=== PATIENT | female | born 1955 | race Caucasian/White ===

== ENCOUNTER 2025-02-16 23:38 | Inpatient (IN) ==
--- NOTE | 2025-02-17 00:05 | Emergency Department Note ---
History of Present Illness General Chief complaint: Flank Pain Stated complaint: RT SIDE PAIN, COUGHING BLOOD Time Seen by Provider: 02/16/25 23:53 History of Present Illness This 70-year-old female presents to ER complaining of fever, chills, congestion and right side abdominal pain for the past 2 days steadily getting worse. Patient does not go to the doctor. She smokes. She has had 2 C-sections. She is an [employer]. Patient denies chest pain, vomiting, diarrhea, urinary symptoms. Home Medications Medication Instructions Recorded Confirmed Type No Known Home Medications 02/17/25 02/17/25 History Allergies Allergy/AdvReac Type Severity Reaction Status Date / Time No Known Allergies Allergy Unverified 02/17/25 01:51 Past Med/Surg History Problem List (Updated 02/17/25 @ 03:26 by Lauren Woo PA-C) Thyroid nodule (Acute) Mass, ovarian (Acute) Sepsis (Acute) Cholecystitis (Acute) Social History Smoking Status: Current every day smoker Tobacco Type: Cigarettes Feels Safe at Home: Yes Review of Systems A total of 10 systems reviewed and were otherwise negative Physical Exam Vital Signs Vital Signs - 24 hr 02/16/25 23:44 02/17/25 00:02 02/17/25 00:16 Temperature 37.8 C H Temperature Source Temporal Artery Scan Pulse Rate 121 H Pulse Rate [Apical] 108 H 98 H Pulse Rhythm Regular Pulse Rhythm [Apical] Regular Respiratory Rate 19 20 18 Respiratory Effort / Characteristics Non-Labored Non-Labored Spontaneous Non-Labored Spontaneous Respiratory Depth Normal Normal Normal Respiratory Pattern Regular Regular Blood Pressure 149/83 H Blood Pressure [Right Arm] 176/80 H 131/93 Blood Pressure Mean 105 Blood Pressure Mean [Right Arm] 112 105 Blood Pressure Position [Right Arm] Sitting Pulse Oximetry 95 95 95 Oxygen Delivery Method Room Air Room Air Room Air Sepsis Recent Fever Within 48 Hours No Sepsis New/Unexplained Change in Mental Status No Sepsis Action Taken by Nursing No Action Required 02/17/25 00:25 02/17/25 02:00 Temperature Temperature Source Pulse Rate 96 H Pulse Rate [Apical] 85 Pulse Rhythm Pulse Rhythm [Apical] Regular Respiratory Rate 16 Respiratory Effort / Characteristics Non-Labored Spontaneous Respiratory Depth Normal Respiratory Pattern Regular Blood Pressure Blood Pressure [Right Arm] 129/58 L Blood Pressure Mean Blood Pressure Mean [Right Arm] 81 Blood Pressure Position [Right Arm] Pulse Oximetry 93 Oxygen Delivery Method Room Air Sepsis Recent Fever Within 48 Hours Sepsis New/Unexplained Change in Mental Status Sepsis Action Taken by Nursing VITALS: Vitals are noted on the nurse's note and reviewed by myself. Vital signs low-grade fever and mildly tachycardic. GENERAL: Pleasant patient with family present, in no acute distress, nondiaphoretic, well-developed well-nourished. SKIN: The skin was without rashes, erythema, edema, or bruising. There is no tenting of the skin. Capillary reflex less than 2 seconds. HEAD: Normocephalic atraumatic. EARS: External auditory canals clear EYES: Pupils equal round and reactive to light and accommodation. Conjunctivae without injection, sclerae without icterus. Extraocular movements intact. NOSE: Patent, no discharge. MOUTH: Mucous membranes moist. Pharynx without erythema or exudate. Uvula midline. Airway patent. Tongue does not deviate. NECK: Supple without nuchal rigidity. No lymphadenopathy. No thyromegaly. Cervical spine is nontender. No JVD. HEART: Mildly tachycardic rate and rhythm LUNGS: Clear to auscultation bilaterally without wheezes, rales or rhonchi. No retractions or accessory muscle use. ABDOMEN: Positive bowel sounds x 4. Normal tympanic percussion. Soft, tender to palpation right upper and lower quadrants, without masses or organomegaly. Landers sign negative. No guarding or rebound tenderness. No CVA tenderness MUSCULOSKELETAL: No muscle atrophy, erythema, or edema noted. NEURO: Patient was alert and oriented to person place and time. Normal sensation to light and sharp touch. No focal neurological deficits. Course Administered Medications Potassium Chloride (K Jimmy / Wtr) 10 meq in 100 mls @ 100 mls/hr IV Q1H [facility] Stop: 02/17/25 06:44 Last Admin: 02/17/25 03:32 Dose: 100 mls/hr Documented By: CHARLIE Magnesium Sulfate/Dextrose (Magnesium Sulfate / D5w) 1 gm in 100 mls @ 100 mls/hr IV Q1H [facility] Stop: 02/17/25 04:41 Last Admin: 02/17/25 03:32 Dose: 100 mls/hr Documented By: CHARLIE Discontinued Medications Acetaminophen (Acetaminophen 325 Mg Tab) 650 mg PO NOW STA Stop: 02/17/25 00:02 Last Admin: 02/17/25 00:17 Dose: 650 mg Documented By: REY Sodium Chloride (Nss) 1,000 mls @ 999 mls/hr IV .Q1H1M [facility] Stop: 02/17/25 01:15 Last Infusion: 02/17/25 02:00 Dose: Infused Documented By: Admin: 02/17/25 00:17 Dose: 999 mls/hr Documented By: REY Piperacillin Sod/Tazobactam Sod (Zosyn) 4.5 gm in 100 mls @ 200 mls/hr IV NOW ONE; Protocol Stop: 02/17/25 00:30 Last Infusion: 02/17/25 01:00 Dose: Infused Documented By: Admin: 02/17/25 00:25 Dose: 200 mls/hr Documented By: CHARLIE Sodium Chloride (Nss) 250 mls @ 999 mls/hr IV .Q16M ONE Stop: 02/17/25 01:17 Last Infusion: 02/17/25 02:20 Dose: Infused Documented By: Admin: 02/17/25 01:35 Dose: 999 mls/hr Documented By: CHARLIE Ioversol (Optiray 320 125ml) 118 ml IV ONCE ONE Stop: 02/17/25 01:27 Last Admin: 02/17/25 01:26 Dose: 118 ml Documented By: BENJAMIN Potassium Chloride (Potassium Chloride Crtab 20 Meq Tabcr) 40 meq PO NOW STA Stop: 02/17/25 02:42 Last Admin: 02/17/25 03:23 Dose: 40 meq Documented By: CHARLIE Medical Decision Making Medical Records Attestation: I reviewed the patient's medical records. Home Medications Current Medication List: was personally reviewed by me Laboratory Data Attestation: I reviewed the patient's lab results. 02/16/25 23:55 02/17/25 02:09 Lab Results 02/16/25 02/17/25 02/17/25 Range/Units 23:55 00:21 00:28 WBC 21.30 H (4.8-10.8) K/ul RBC 5.06 (4.20-5.40) M/uL Hgb 15.6 (12.0-16.0) g/dl Hct 45.9 (37.0-47.0) % MCV 90.7 (80.0-100.0) fL MCH 30.8 (25.0-34.0) pg MCHC 34.0 (32.0-36.0) g/dL RDW Std Deviation 43.5 (36.4-46.3) fL RDW Coeff of Ubaldo 13.1 (11.5-14.5) % Plt Count 207 (130-400) K/uL MPV 12.0 (9.4-12.4) fL Immature Gran % (Auto) 1.0 % Neut % (Auto) 87.2 % Lymph % (Auto) 7.9 % Mccracken % (Auto) 3.6 % Eos % (Auto) 0.0 % Baso % (Auto) 0.3 % Neut # (Auto) 18.58 H (1.40-6.50) K/uL Lymph # (Auto) 1.68 (1.20-3.40) K/uL Mccracken # (Auto) 0.76 H (0.11-0.59) K/uL Eos # (Auto) 0.00 (0.00-0.50) K/uL Baso # (Auto) 0.06 (0.00-0.20) K/uL Immature Gran # (Auto) 0.22 H (0.01-0.20) K/uL Sodium 135 L (136-145) mmol/L Potassium TNP Chloride 99 (98-107) mmol/L Carbon Dioxide 27 (21-32) mmol/L Anion Gap 9 (3-11) BUN 18 (6-23) mg/dl Creatinine 0.91 (0.6-1.2) mg/dl Est Cr Clr Drug Dosing 37.1 ml/min eGFR 68.29 BUN/Creatinine Ratio 19.8 (10-20) Glucose 129 H (70-99(Fasting)) mg/dl Lactate 1.7 (0.4-2.0) mmol/L Calcium 9.5 (8.6-10.3) mg/dl Magnesium 1.9 (1.7-2.4) mg/dl Total Bilirubin 0.6 (0.2-1.0) mg/dl Direct Bilirubin TNP AST TNP ALT 7 (7-52) U/L Alkaline Phosphatase 124 H (34-104) U/L Troponin I High Sens 23.1 H (0-14) pg/ml Total Protein 7.6 (6.0-8.3) gm/dl Albumin 3.9 (3.4-5.0) gm/dl Procalcitonin 4.20 H (0-0.5) ng/ml Urine Color Urine Appearance (Clear) Urine pH (4.5-7.5) Ur Specific [place] (1.000-1.030) Urine Protein (Negative) Urine Glucose (UA) (Negative) Urine Ketones (Negative) Urine Blood (Negative) Urine Nitrite (Negative) Urine Bilirubin (Negative) Urine Urobilinogen (Negative) Ur Leukocyte Esterase (Negative) Urine WBC (Auto) (0-5) /hpf Urine RBC (Auto) (0-2) /hpf U Hyaline Cast (Auto) (0-2) /lpf U Epithel Cells (Auto) (0-2) /hpf Urine Bacteria (Auto) (None Seen) Urine Mucus (None Prsent) SARS-CoV-2 (PCR) NEGATIVE (Negative) Influenza Type A (PCR) Negative (Neg) Influenza Type B (PCR) Negative (Neg) RSV (RT-PCR) Negative (Neg) 02/17/25 02/17/25 Range/Units 00:58 02:09 WBC (4.8-10.8) K/ul RBC (4.20-5.40) M/uL Hgb (12.0-16.0) g/dl Hct (37.0-47.0) % MCV (80.0-100.0) fL MCH (25.0-34.0) pg MCHC (32.0-36.0) g/dL RDW Std Deviation (36.4-46.3) fL RDW Coeff of Ubaldo (11.5-14.5) % Plt Count (130-400) K/uL MPV (9.4-12.4) fL Immature Gran % (Auto) % Neut % (Auto) % Lymph % (Auto) % Mccracken % (Auto) % Eos % (Auto) % Baso % (Auto) % Neut # (Auto) (1.40-6.50) K/uL Lymph # (Auto) (1.20-3.40) K/uL Mccracken # (Auto) (0.11-0.59) K/uL Eos # (Auto) (0.00-0.50) K/uL Baso # (Auto) (0.00-0.20) K/uL Immature Gran # (Auto) (0.01-0.20) K/uL Sodium (136-145) mmol/L Potassium 2.7 L Chloride (98-107) mmol/L Carbon Dioxide (21-32) mmol/L Anion Gap (3-11) BUN (6-23) mg/dl Creatinine (0.6-1.2) mg/dl Est Cr Clr Drug Dosing ml/min eGFR BUN/Creatinine Ratio (10-20) Glucose (70-99(Fasting)) mg/dl Lactate (0.4-2.0) mmol/L Calcium (8.6-10.3) mg/dl Magnesium (1.7-2.4) mg/dl Total Bilirubin (0.2-1.0) mg/dl Direct Bilirubin 0.2 AST 9 L ALT (7-52) U/L Alkaline Phosphatase (34-104) U/L Troponin I High Sens 15.5 H D (0-14) pg/ml Total Protein (6.0-8.3) gm/dl Albumin (3.4-5.0) gm/dl Procalcitonin (0-0.5) ng/ml Urine Color Dark Yellow Urine Appearance Cloudy A (Clear) Urine pH 5.5 (4.5-7.5) Ur Specific [place] 1.027 (1.000-1.030) Urine Protein 2+ H (Negative) Urine Glucose (UA) Negative (Negative) Urine Ketones Trace H (Negative) Urine Blood Trace H (Negative) Urine Nitrite Negative (Negative) Urine Bilirubin 1+ H (Negative) Urine Urobilinogen Negative (Negative) Ur Leukocyte Esterase 1+ H (Negative) Urine WBC (Auto) 6-10 H (0-5) /hpf Urine RBC (Auto) 6-10 H (0-2) /hpf U Hyaline Cast (Auto) 6-10 H (0-2) /lpf U Epithel Cells (Auto) 6-10 H (0-2) /hpf Urine Bacteria (Auto) 1+ H (None Seen) Urine Mucus Present A (None Prsent) SARS-CoV-2 (PCR) (Negative) Influenza Type A (PCR) (Neg) Influenza Type B (PCR) (Neg) RSV (RT-PCR) (Neg) Imaging Data Attestation: I personally reviewed and interpreted this imaging study as follows: Radiologist's Impression: Abdomen/Pelvis CT 02/17/25 00:01 EXAM: CT abd pelvis IV con only CLINICAL HISTORY: fever right abd pain TECHNIQUE: Multiple contiguous axial images were obtained from the level of diaphragm to the pubis symphysis. This study was acquired after the IV administration of iodinated contrast material, given the patient's indications for the examination. If IV contrast material had not been administered, the likelihood of detecting abnormalities relevant to the patient's condition would have been substantially decreased. Coronal and sagittal reformatted images were generated and reviewed to improve anatomic localization and optimize lesion detection. CT scan was performed according to ALARA (as low as reasonably achievable). COMPARISON: none FINDINGS: The visualized lung bases are clear. ABDOMEN/PELVIS: The liver is normal in size and attenuation. No focal liver lesions are seen. Hepatic vasculature is patent. A large 13.4mm calculus seen within gallbladder lumen with diffuse wall thickening , pericholecystic edema and significant fat stranding. Fat stranding with ill defined fluid also seen in right paracolic gutter. Diverticulum measuring 2.5x1.7cm seen arising from D3 segment of duodenum causing extenal compression over distal CBD leading dilatation of CBD, CHD and mild bilobar intrahepatic biliary radicle dilatation. Enhancing oval shaped lesion in periportal region measuring 14 mm in short axis diameter. The spleen, pancreas, and adrenal glands are unremarkable. The kidneys are normal in size and attenuation. There is no hydronephrosis or perinephric fat stranding. No renal calculi or renal masses are identified. The ureters are normal in caliber and no ureteral calculi are seen. The bladder is normal in contour. Long segment mural stratification seen in sigmoid and descending colon. Few small diverticuli of 2mm seen in sigmoid colon. No inflammatory changes. The appendix is visualized in the right lower quadrant and appears within normal limits. No adenopathy or fluid collections are seen. A cystic lesion measuring 6.6x4.5cm seen in right adnexa. No enhancing solid component/septation seen. Small left ovarian cyst of 2.7x2cm. The aorta is normal in caliber. Diffuse atherosclerotic wall calcification of abdominal aorta. No aggressive appearing osseous lesions are identified. IMPRESSION: 1. Acute calculus cholecystitis. 2. 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 3. Uncomplicated sigmoid colon diverticulosis. 4. Long segment mural stratification seen in sigmoid and descending colon- Possible early colitis. 5. Large right ovarian cyst and small left ovarian cyst. Suggested ultrasound/MRI pelvis and serum CA 125 levels correlation. 6. Enhancing oval shaped lesion in periportal region measuring 14 mm in short axis diameter. Likely lymph node- reactive. Electronically signed by Bob Willson 02-17-2025 02:27 AM Chest CTA 02/17/25 00:01 EXAM: CT angio chest PE protocol CLINICAL HISTORY: PE TECHNIQUE: Contiguous axial images were obtained from the neck base through the upper abdomen following intravenous administration of iodinated contrast material. Angiographic images were processed, 3D MIP images were acquired for interpretation. If IV contrast material had not been administered, the likelihood of detecting abnormalities relevant to the patient's condition would have been substantially decreased. Coronal and sagittal 3-D MIPs were likewise performed and indicated to increase the sensitivity of detecting diffuse clinically relevant pathology. CT scan was performed according to ALARA (as low as reasonably achievable). COMPARISON: none. FINDINGS: Adequate contrast bolus without evidence of pulmonary embolism. The central airways are patent. The lungs are clear. No pleural effusion. The heart, and pulmonary arteries are of normal size and configuration. There are extensive coronary artery and aortic atherosclerotic calcifications with a focal outpouching arising from lateral wall of arch of aorta just distal to origin of left subclavian artery ~ 4 x 5 mm No pericardial effusion is identified. The thyroid shows multiple tiny nodules in both lobes. No mediastinal, hilar, or axillary lymphadenopathy is noted. No suspicious lytic or sclerotic osseous lesions are identified. IMPRESSION: 1. No evidence of pulmonary embolism or pulmonary disease. 2. Thyroid nodules- suggested ultrasound correlation. 3. Extensvie atherocalcific changes involving aorta with a focal outpouching arising from lateral wall of arch of aorta just distal to origin of left subclavian artery ~ 4 x 5 mm Electronically signed by Bob Willson 02-17-2025 02:17 AM Chest X-Ray 02/17/25 00:02 EXAM: XR chest 1V portable CLINICAL HISTORY: Sepsis. TECHNIQUE: An X-ray image of the chest is obtained in AP projection. COMPARISON: No prior studies are available for comparison. FINDINGS: Pulmonary Parenchyma: Prominent perihilar bronchovascular markings, non-specific. No evidence of consolidation, collapse, or focal opacities. No pulmonary nodules are identified. No evidence of pleural effusion or pleural thickening. Heart and Mediastinum: The heart size appears enlarged in this projection. No mediastinal widening or masses. No hilar or mediastinal lymphadenopathy. Bony Thorax: Bony thorax appears intact without fractures or deformities. Soft Tissues: Soft tissues overlying the chest wall are unremarkable. Overlying chest leads are seen. IMPRESSION: 1. No acute cardiopulmonary abnormality is identified. 2. Prominent perihilar bronchovascular markings, non-specific. 3. No evidence of consolidation, collapse, or pleural effusion. Electronically signed by Oz Juarez 02-17-2025 01:44 AM [facility] Narrative Prior records/ancillary studies reviewed. Triage Nursing notes reviewed. Additional history obtained from family. The patient's history was concerning for abdominal pain and fever. Differential diagnosis: Etiologies such as appendicitis, ruptured appendicitis, intra-abdominal, gallbladder, viral syndrome, otitis, pharyngitis, pneumonia, influenza, meningitis, urinary tract infection, sepsis, bacteremia, as well as others were entertained. Physical examination: As above ER treatment provided: An order was placed for continuous cardiac monitoring. The monitor shows a rate of 60-1 30 with a sinus rhythm per my interpretation. IV fluids per septic protocol was initiated, Tylenol and Zosyn were ordered Potassium and magnesium were replaced On reassessment the patient felt better. Diagnostics interpreted by me: ECG: Ordered for weakness EKG: Normal sinus, left axis, no acute ST-T wave changes, rate 99. Impression normal sinus rhythm left axis deviation independently interpreted by myself The labs Independently Interpreted by myself revealed leukocytosis, elevated procalcitonin, negative lactic Blood cultures pending Hypokalemia this was replaced. Magnesium 1.9 and this was replaced Imaging studies: Imaging was reviewed and read by radiology Consultation: A consultation was placed with hospitalist. The case was discussed and diagnostics were reviewed. The patient was evaluated in the ER for further treatment. Consultation was placed with surgery and the case discussed. Patient was evaluated by the surgical team. This appears to be consistent with acute cholecystitis and sepsis with other multiple incidental findings. Patient was given antibiotics and fluids per septic protocol. Skin was reassessed and is stable. No signs of hypoperfusion. Vital signs did improve. She was reassessed multiple times. Electrolytes were replaced. Surgery and medicine were consulted. Surgery recommends medical admission. Patient was given antibiotics upon initial evaluation as I was concerned she had a surgical abdomen. Patient had numerous incidental findings. She was informed of all the incidental findings. Pelvic ultrasound was ordered. No signs of torsion on clinical exam. Repeat abdominal exam is benign. By the evaluation outlined above emergent etiologies such as otitis, pharyngitis, pneumonia, meningitis, urinary tract infection, as well as others were deemed relatively unlikely. The pt informed about the findings as listed above. All questions were answered and pleased with the treatment. The chart was completed utilizing [employer] Speech voice recognition software. Grammatical errors, random word insertions, pronoun errors, and incomplete sentences are an occassional consequence of this system due to software limitations, ambient noise, and hardware issues. Any formal questions or concerns about the content, text, or information contained within the body of this dictation should be directly addressed to the physician compounding assistant for clarification. Impression & Plan Cholecystitis, Sepsis, Mass, ovarian, Thyroid nodule, Acute hypokalemia Discharge Plan Visit Data Chief Complaint: Flank Pain Stated Complaint: RT SIDE PAIN, COUGHING BLOOD ED Provider: Prisca Brannon ED Midlevel Provider: Lauren Woo Discharge Problem: Cholecystitis, Sepsis, Mass, ovarian, Thyroid nodule, Acute hypokalemia Patient Disposition: Admitted As Inpatient Condition: Fair Forms Stand Alone Forms: [employer] Prescriptions Prescriptions: No Action No Known Home Medications Referrals Referrals: PCP,NO [Primary Care Provider] -
[2025-02-17] MEDS: ACETAMINOPHEN 325 MG TAB PO STA (00:17)
[2025-02-17] MEDS: SODIUM CHLORIDE 0.9% 1,000 ML IV SCH (00:17)
[2025-02-17] MEDS: PIPERACILLIN/TAZOBACTAM 4.5 GM/100 ML BAG IV ONE (00:25)
[2025-02-17 00:34] LABS: Basophils # (auto) 0.06 K/uL (0.00-0.20); Basophils % (auto) 0.3 %; Hematocrit (blood only) 45.9 % (37.0-47.0); Hemoglobin 15.6 g/dl (12.0-16.0); Immature Granulocytes # (auto) 0.22 K/uL (0.01-0.20); Lymphocytes # (auto) 1.68 K/uL (1.20-3.40); Lymphocytes % (auto) 7.9 %; Mean Corpuscular Hemoglobin 30.8 pg (25.0-34.0); Mean Corpuscular Volume 90.7 fL (80.0-100.0); Monocytes # (auto) 0.76 K/uL (0.11-0.59); Monocytes % (auto) 3.6 %; Neutrophils # (auto) 18.58 K/uL (1.40-6.50); Neutrophils % (auto) 87.2 %; Platelet Count 207 K/uL (130-400); RDW Coefficient of Variation 13.1 % (11.5-14.5); RDW Standard Deviation 43.5 fL (36.4-46.3); Red Blood Count 5.06 M/uL (4.20-5.40)
[2025-02-17 01:05] LABS: Alanine Aminotransferase 7 U/L (7-52); Albumin Level 3.9 gm/dl (3.4-5.0); Alkaline Phosphatase 124 U/L (34-104); Anion Gap 9 (3-11); BUN Creatinine Ratio 19.8 (10-20); Bilirubin,Total 0.6 mg/dl (0.2-1.0); Blood Urea Nitrogen 18 mg/dl (6-23); Calcium 9.5 mg/dl (8.6-10.3); Carbon Dioxide 27 mmol/L (21-32); Chloride 99 mmol/L (98-107); Creatinine Clr Calc Pharmacy 37.1 ml/min; Glucose 129 mg/dl (70-99(Fasting)); Magnesium 1.9 mg/dl (1.7-2.4); Sodium 135 mmol/L (136-145); Total Protein 7.6 gm/dl (6.0-8.3); Troponin I High Sensitivity 23.1 pg/ml (0-14)
[2025-02-17 01:05] LABS: Influenza A virus by PCR Negative (Neg); Influenza B virus by PCR Negative (Neg); RSV by PCR Negative (Neg); SARS CoV2 RNA(COVID-19) Ceph NEGATIVE (Negative)
[2025-02-17 01:20] LABS: Appearance Urine Cloudy (Clear); Bacteria Urine Automated 1+ (None Seen); Bilirubin Urine 1+ (Negative); Blood Urine Trace (Negative); Color Urine Dark Yellow; Glucose Urine UA Negative (Negative); Ketones Urine Trace (Negative); Leukocyte Esterase Urine 1+ (Negative); Mucus Urine Present (None Prsent); Nitrite Urine Negative (Negative); Protein Urine 2+ (Negative); Specific Gravity Urine 1.027 (1.000-1.030); Urobilinogen Urine Negative (Negative); pH Urine 5.5 (4.5-7.5)
[2025-02-17] MEDS: OPTIRAY 320 125ml IV ONE (01:26)
[2025-02-17] MEDS: SODIUM CHLORIDE 0.9% 250 ML IV ONE (01:35)
--- NOTE | 2025-02-17 01:44 | XRay Report ---
EXAM: XR chest 1V portable CLINICAL HISTORY: Sepsis. TECHNIQUE: An X-ray image of the chest is obtained in AP projection. COMPARISON: No prior studies are available for comparison. FINDINGS: Pulmonary Parenchyma: Prominent perihilar bronchovascular markings, non-specific. No evidence of consolidation, collapse, or focal opacities. No pulmonary nodules are identified. No evidence of pleural effusion or pleural thickening. Heart and Mediastinum: The heart size appears enlarged in this projection. No mediastinal widening or masses. No hilar or mediastinal lymphadenopathy. Bony Thorax: Bony thorax appears intact without fractures or deformities. Soft Tissues: Soft tissues overlying the chest wall are unremarkable. Overlying chest leads are seen. IMPRESSION: 1. No acute cardiopulmonary abnormality is identified. 2. Prominent perihilar bronchovascular markings, non-specific. 3. No evidence of consolidation, collapse, or pleural effusion. Electronically signed by Oz Juarez 02-17-2025 01:44 AM
--- NOTE | 2025-02-17 02:18 | CT Scan Report ---
EXAM: CT angio chest PE protocol CLINICAL HISTORY: PE TECHNIQUE: Contiguous axial images were obtained from the neck base through the upper abdomen following intravenous administration of iodinated contrast material. Angiographic images were processed, 3D MIP images were acquired for interpretation. If IV contrast material had not been administered, the likelihood of detecting abnormalities relevant to the patient's condition would have been substantially decreased. Coronal and sagittal 3-D MIPs were likewise performed and indicated to increase the sensitivity of detecting diffuse clinically relevant pathology. CT scan was performed according to ALARA (as low as reasonably achievable). COMPARISON: none. FINDINGS: Adequate contrast bolus without evidence of pulmonary embolism. The central airways are patent. The lungs are clear. No pleural effusion. The heart, and pulmonary arteries are of normal size and configuration. There are extensive coronary artery and aortic atherosclerotic calcifications with a focal outpouching arising from lateral wall of arch of aorta just distal to origin of left subclavian artery ~ 4 x 5 mm No pericardial effusion is identified. The thyroid shows multiple tiny nodules in both lobes. No mediastinal, hilar, or axillary lymphadenopathy is noted. No suspicious lytic or sclerotic osseous lesions are identified. IMPRESSION: 1. No evidence of pulmonary embolism or pulmonary disease. 2. Thyroid nodules- suggested ultrasound correlation. 3. Extensvie atherocalcific changes involving aorta with a focal outpouching arising from lateral wall of arch of aorta just distal to origin of left subclavian artery ~ 4 x 5 mm Electronically signed by Bob Willson 02-17-2025 02:17 AM
--- NOTE | 2025-02-17 02:28 | CT Scan Report ---
EXAM: CT abd pelvis IV con only CLINICAL HISTORY: fever right abd pain TECHNIQUE: Multiple contiguous axial images were obtained from the level of diaphragm to the pubis symphysis. This study was acquired after the IV administration of iodinated contrast material, given the patient's indications for the examination. If IV contrast material had not been administered, the likelihood of detecting abnormalities relevant to the patient's condition would have been substantially decreased. Coronal and sagittal reformatted images were generated and reviewed to improve anatomic localization and optimize lesion detection. CT scan was performed according to ALARA (as low as reasonably achievable). COMPARISON: none FINDINGS: The visualized lung bases are clear. ABDOMEN/PELVIS: The liver is normal in size and attenuation. No focal liver lesions are seen. Hepatic vasculature is patent. A large 13.4mm calculus seen within gallbladder lumen with diffuse wall thickening , pericholecystic edema and significant fat stranding. Fat stranding with ill defined fluid also seen in right paracolic gutter. Diverticulum measuring 2.5x1.7cm seen arising from D3 segment of duodenum causing extenal compression over distal CBD leading dilatation of CBD, CHD and mild bilobar intrahepatic biliary radicle dilatation. Enhancing oval shaped lesion in periportal region measuring 14 mm in short axis diameter. The spleen, pancreas, and adrenal glands are unremarkable. The kidneys are normal in size and attenuation. There is no hydronephrosis or perinephric fat stranding. No renal calculi or renal masses are identified. The ureters are normal in caliber and no ureteral calculi are seen. The bladder is normal in contour. Long segment mural stratification seen in sigmoid and descending colon. Few small diverticuli of 2mm seen in sigmoid colon. No inflammatory changes. The appendix is visualized in the right lower quadrant and appears within normal limits. No adenopathy or fluid collections are seen. A cystic lesion measuring 6.6x4.5cm seen in right adnexa. No enhancing solid component/septation seen. Small left ovarian cyst of 2.7x2cm. The aorta is normal in caliber. Diffuse atherosclerotic wall calcification of abdominal aorta. No aggressive appearing osseous lesions are identified. IMPRESSION: 1. Acute calculus cholecystitis. 2. 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 3. Uncomplicated sigmoid colon diverticulosis. 4. Long segment mural stratification seen in sigmoid and descending colon- Possible early colitis. 5. Large right ovarian cyst and small left ovarian cyst. Suggested ultrasound/MRI pelvis and serum CA 125 levels correlation. 6. Enhancing oval shaped lesion in periportal region measuring 14 mm in short axis diameter. Likely lymph node- reactive. Electronically signed by Bob Willson 02-17-2025 02:27 AM
[2025-02-17 02:39] LABS: Bilirubin Direct 0.2 mg/dl (0-0.2); Potassium 2.7 mmol/L (3.5-5.1)
[2025-02-17 02:48] LABS: Troponin I High Sensitivity 15.5 pg/ml (0-14)
--- NOTE | 2025-02-17 03:05 | Surgery Consultation ---
<Statement entered by Sophia Arita DO - 02/17/25 10:26> I have seen and examined this patient this am and I agree with the plan. Agree with medical work up. Date of Consultation February 17, 2025 Assessment & Plan (1) Cholecystitis: I evaluated the patient in room B10 at the request of the emergency room staff. From surgery perspective we recommend the following: it appears as though by CT scan the patient has acute cholecystitis.: Antibiotics in form of Zosyn have been initiated should continue Analgesics to be provided Antiemetics to be provided N.p.o. status should be implemented Intravenous fluids to be provided for hydration supplementing her potassium We will check a formal gallbladder ultrasound for better delineation of the hepatobiliary system, particular since there is some dilatation of the biliary ducts: Will repeat LFTs the morning of 02/17/2025 The patient may benefit from cholecystectomy at some point, however I feel will be beneficial for her to have a medical evaluation (see below) It also appears by CT scan the patient may be suffering from early colitis. The above treatment for suspected cholecystitis will treat this condition as well. As noted in the history of present illness the patient is not seen a [facility] professional in nearly 30 years and she has an extensive smoking history. There are also some abnormalities noted on her imaging including an abnormal outpouching of her aortic arch (I suspect this is atherosclerotic change related to her extensive smoking history, but this would likely benefit from vascular surgery follow-up), thyroid nodules which will require follow-up, a duodenal diverticulum which may require GI input, ovarian cyst which would likely benefit from pelvic ultrasound and potential [employer] follow-up. Additional recommendations with forthcoming based on her clinical course as it unfolds as well as evaluation from the medical service Would recommend utilizing SCDs only for DVT prevention until is ascertained whether or not patient require any procedural/surgical intervention History of Present Illness Reason for Consultation: Cholelithiasis/cholecystitis History of Present Illness This is a 70-year-old female who presented to the emergency department secondary to right upper quadrant abdominal pain. Patient reports to me that the pain s tarted 2 days ago and is unrelated to meals. She also denies any postprandial pain over the past several weeks to months of a lesser degree. While at home the patient did not have any fevers, shakes, or chills but she does report having a low-grade fever in the hospital. She specifically denies any nausea or vomiting. She notes that her pain does not radiate and denies any other mitigating factors. She has had prior abdominal surgery in the form of 2 C- sections. I question the patient on her daily activities and she says that she does not get chest pain or shortness of breath with activity and feels as though she can walk a mile on a flat surface. She does note that she has difficulty walking up steps however due to arthritic pain in her knees. She does admit that she has not seen a healthcare provider in close to 30 years. In addition, the patient notes that she has an extensive smoking history having smoked up to 1 pack cigarettes per day for up to 50 years. She denies any known family history of coronary artery disease Since arrival hospital patient has had labs and imaging which had been reviewed. A chest x-ray showed no evidence of pneumonia. Patient had a CT scan of the abdomen pelvis which was negative for pulmonary emboli. Patient was noted to have some thyroid nodules noted and she was also noted to have atherosclerotic changes involving the aorta where a focal outpouching arising from the lateral wall of the aortic arch just distal to the origin of the left subclavian artery was noted and this measured 4 x [address] scan of the abdomen pelvis was p erformed. This study noted a 13.4 mm gallstone within the gallbladder lumen. There is pericholecystic edema noted with significant fat stranding and diffuse gallbladder wall thickening. Patient was also noted to have a diverticulum arising from the duodenum which measured approximately 2.5 x 1.7 cm causing external compression over the common bile ductthis cause noted dilatation of the common bile sean and common hepatic duct. Labs including CBC were white blood cell count was elevated 21.3. Her hemoglobin and hematocrit as well as platelet count was normal. Chemistry profile showed sodium was 135 with a potassium of 2.7. BUN and creatinine were both normal. Lactic acid level was not elevated at 1.7. Patient's total and direct bilirubin were both not elevated. Her transaminases were not elevated. She did have a slight elevation of her alkaline phosphatase at 124. She did have a high-sensitivity troponin that was noted to have a slight elevation of 23.1. Urinalysis was negative for nitrites but did have 1+ leukocyte Estrace and 6-10 white blood cells per high- power field. There is 1+ bacteria on the study. She was tested for COVID, RSV, as well as influenza all which were negative. An EKG showed normal sinus rhythm without changes indicative of acute ischemia. At the time of my interview she was resting comfortably in bed and she was in no distress. Allergies Allergy/AdvReac Type Severity Reaction Status Date / Time No Known Allergies Allergy Unverified 02/17/25 01:51 Home Medications Medication Instructions Recorded Confirmed Type No Known Home Medications 02/17/25 02/17/25 History Patient History Social History Smoking Status: Current every day smoker Tobacco Type: Cigarettes Feels Safe at Home: Yes Review of Systems Review of Systems: All systems reviewed & are unremarkable except as noted in HPI & below Physical Exam Constitutional: WD/WN, vitals as above Eyes: + anicteric sclerae ENMT: Ears: no hearing impairment and no external ear abnormality Subungual jaundice is absent Neck: trachea midline Respiratory: normal respiratory effort; no respiratory distress and no labored breathing No wheezing Cardiovascular: Rate/Rhythm: regular rate and regular rhythm Gastrointestinal (Abdomen): At the time of my exam the patient's abdomen was soft without distention. There is no pain with palpation. Landers sign is negative Musculoskeletal: No calf tenderness. I cannot palpate pedal pulses but her feet were warm and well-perfused Skin: no jaundice Neurologic: moves all extremities Psychiatric: A+Ox3, euthymic affect Results & Data Vital Signs (Past 12 Hours) Vital Signs Temp Pulse Pulse Resp BP BP Pulse Ox 02/17/25 02:00 85 16 129/58 L 93 02/17/25 00:25 96 H 02/17/25 00:16 98 H 18 131/93 95 02/17/25 00:02 108 H 20 176/80 H 95 02/16/25 23:44 37.8 C H 121 H 19 149/83 H 95 O2 Del Method 02/17/25 02:00 Room Air 02/17/25 00:25 02/17/25 00:16 Room Air 02/17/25 00:02 Room Air 02/16/25 23:44 Room Air PG Care Time/CCT Total # of Minutes Spent Total Time Spent with Patient: Total time spent is greater than 50% in coordination of care (as documented) at patient's floor/unit and/or counseling patient: Coding Level of Care Code 87559 INT INP/OBS CARE MIN Diagnoses Cholecystitis K81.9
[2025-02-17] MEDS: POTASSIUM CHLORIDE CRTAB 20 MEQ TABCR PO STA (03:23)
[2025-02-17] MEDS: MAGNESIUM SULFATE / D5W 1 GM/100 ML BAG IV SCH (03:32)
[2025-02-17] MEDS: POTASSIUM CHLORIDE / WTR 10 MEQ/100 ML PLCT IV SCH (03:32)
--- NOTE | 2025-02-17 03:35 | History & Physical Report ---
Date of Service February 17, 2025 Assessment & Plan (1) Mass, ovarian: (2) Thyroid nodule: (3) Sepsis: (4) Cholecystitis: Plan 70-year-old female presents to the ER with nausea vomiting diarrhea and right upper quadrant abdominal pain #Sepsis / acute cholecystitis Some concern for extrinsic compression on the bile duct however LFTs are normal and pain improving. Discussed with general surgery PA on admission and plan to admit for surgical evaluation by attending in AM. IV ceftriaxone 2g daily + IV metronidazole 500mg q8h Lactate 1.7, not hypotensive, does not meet criteria for IV fluid sepsis bolus, continue maintenance IV fluids Procalcitonin 4.2. Follow-up blood cultures. #Abnormal ascending aorta Discuss with vascular surgery in a.m. #Thyroid nodules TSH added to prior labs Follow-up ultrasound thyroid as an outpatient #Ovarian cysts Follow-up pelvic ultrasound - ordered in ER Ca 125 with a.m. labs VTE Prophylaxis - deferred pending surgical attending evaluation Disposition - admit to PCU Admission and Anticipated Discharge Date Admission Date: February 17, 2025 History of Present Illness Chief Complaint: Right upper quadrant abdominal pain Primary Care Provider: NO PCP Olinda Olsen is a 70-year-old female who presents to the ER with 2 days of right upper quadrant abdominal pain. Severity 0/10 currently, 10/10 on Saturday. No exacerbating or alleviating factors better started to go away this morning however her son advised her to come to the ER. No nausea, vomiting, change in bowels, melena or hematochezia. No dysphagia or odynophagia. Coughing up mucus since reducing her smoking. 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 She has not seen a medical provider for 30 years. She smokes half pack a day for 54 years ([id number] history). She notes unintentional weight loss of 86 pounds over the last 3 years. Allergies Allergy/AdvReac Type Severity Reaction Status Date / Time No Known Allergies Allergy Unverified 02/17/25 01:51 Home Medications Medication Instructions Recorded Confirmed Type No Known Home Medications 02/17/25 02/17/25 History Past Med/Surg History Problem List (Updated 02/17/25 @ 03:26 by Lauren Woo PA-C) Thyroid nodule (Acute) Mass, ovarian (Acute) Sepsis (Acute) Cholecystitis (Acute) Social History Smoking Status: Current every day smoker Tobacco Type: Cigarettes Feels Safe at Home: Yes Review of Systems Review of Systems: All systems reviewed & are unremarkable except as noted in HPI & below Physical Exam Constitutional: well developed and + cachectic; + not well nourished and no a cute distress Eyes: PERRL, conjunctivae normal, anicteric sclerae ENMT: external ear and nose normal, oropharynx normal Respiratory: normal respiratory effort, lungs clear to auscultation Cardiovascular: RRR, no murmur, no edema Gastrointestinal (Abdomen): Inspection/Auscultation: abdomen normal to inspection; abdomen not distended Percussion/Palpation: + abdomen tender (RUQ), + guarding and abdomen soft; abdomen not rigid Skin: no rashes, warm and dry Neurologic: moves all extremities and awake; not confused Psychiatric: A+Ox3, euthymic affect Genitourinary: no CVA tenderness Results & Data Results & Data Vital Signs (Past 12 Hours) Vital Signs Temp Pulse Pulse Resp BP BP Pulse Ox 02/17/25 02:00 85 16 129/58 L 93 02/17/25 00:25 96 H 02/17/25 00:16 98 H 18 131/93 95 02/17/25 00:02 108 H 20 176/80 H 95 02/16/25 23:44 37.8 C H 121 H 19 149/83 H 95 O2 Del Method 02/17/25 02:00 Room Air 02/17/25 00:25 02/17/25 00:16 Room Air 02/17/25 00:02 Room Air 02/16/25 23:44 Room Air Laboratory Results Abnormal lab results 02/16/25 02/17/25 02/17/25 Range/Units 23:55 00:58 02:09 WBC 21.30 H (4.8-10.8) K/ul Neut # (Auto) 18.58 H (1.40-6.50) K/uL [place] # (Auto) 0.76 H (0.11-0.59) K/uL Immature Gran # (Auto) 0.22 H (0.01-0.20) K/uL Sodium 135 L (136-145) mmol/L Potassium 2.7 L (3.5-5.1) mmol/L Glucose 129 H (70-99(Fasting)) mg/dl AST 9 L (13-39) U/L Alkaline Phosphatase 124 H (34-104) U/L Troponin I High Sens 23.1 H 15.5 H D (0-14) pg/ml Procalcitonin 4.20 H (0-0.5) ng/ml Urine Appearance Cloudy A (Clear) Urine Protein 2+ H (Negative) Urine Ketones Trace H (Negative) Urine Blood Trace H (Negative) Urine Bilirubin 1+ H (Negative) Ur Leukocyte Esterase 1+ H (Negative) Urine WBC (Auto) 6-10 H (0-5) /hpf Urine RBC (Auto) 6-10 H (0-2) /hpf U Hyaline Cast (Auto) 6-10 H (0-2) /lpf U Epithel Cells (Auto) 6-10 H (0-2) /hpf Urine Bacteria (Auto) 1+ H (None Seen) Urine Mucus Present A (None Prsent) Diagnostic Findings XR chest 1V portable CLINICAL HISTORY: Sepsis. TECHNIQUE: An X-ray image of the chest is obtained in AP projection. COMPARISON: No prior studies are available for comparison. FINDINGS: Pulmonary Parenchyma: Prominent perihilar bronchovascular markings, non-specific. No evidence of consolidation, collapse, or focal opacities. No pulmonary nodules are identified. No evidence of pleural effusion or pleural thickening. Heart and Mediastinum: The heart size appears enlarged in this projection. No mediastinal widening or masses. No hilar or mediastinal lymphadenopathy. Bony Thorax: Bony thorax appears intact without fractures or deformities. Soft Tissues: Soft tissues overlying the chest wall are unremarkable. Overlying chest leads are seen. IMPRESSION: 1. No acute cardiopulmonary abnormality is identified. 2. Prominent perihilar bronchovascular markings, non-specific. 3. No evidence of consolidation, collapse, or pleural effusion. CT angio chest PE protocol CLINICAL HISTORY: PE TECHNIQUE: Contiguous axial images were obtained from the neck base through the upper abdomen following intravenous administration of iodinated contrast material. Angiographic images were processed, 3D MIP images were acquired for interpretation. If IV contrast material had not been administered, the likelihood of detecting abnormalities relevant to the patient's condition would have been substantially decreased. Coronal and sagittal 3-D MIPs were likewise performed and indicated to increase the sensitivity of detecting diffuse clinically relevant pathology. CT scan was performed according to ALARA (as low as reasonably achievable). COMPARISON: none. FINDINGS: Adequate contrast bolus without evidence of pulmonary embolism. The central airways are patent. The lungs are clear. No pleural effusion. The heart, and pulmonary arteries are of normal size and configuration. There are extensive coronary artery and aortic atherosclerotic calcifications with a focal outpouching arising from lateral wall of arch of aorta just distal to origin of left subclavian artery ~ 4 x 5 mm No pericardial effusion is identified. The thyroid shows multiple tiny nodules in both lobes. No mediastinal, hilar, or axillary lymphadenopathy is noted. No suspicious lytic or sclerotic osseous lesions are identified. IMPRESSION: 1. No evidence of pulmonary embolism or pulmonary disease. 2. Thyroid nodules- suggested ultrasound correlation. 3. Extensvie atherocalcific changes involving aorta with a focal outpouching arising from lateral wall of arch of aorta just distal to origin of left subclavian artery ~ [address] abd pelvis IV con only CLINICAL HISTORY: fever right abd pain TECHNIQUE: Multiple contiguous axial images were obtained from the level of diaphragm to the pubis symphysis. This study was acquired after the IV administration of iodinated contrast material, given the patient's indications for the examination. If IV contrast material had not been administered, the likelihood of detecting abnormalities relevant to the patient's condition would have been substantially decreased. Coronal and sagittal reformatted images were generated and reviewed to improve anatomic localization and optimize lesion detection. CT scan was performed according to ALARA (as low as reasonably achievable). COMPARISON: none FINDINGS: The visualized lung bases are clear. ABDOMEN/PELVIS: The liver is normal in size and attenuation. No focal liver lesions are seen. Hepatic vasculature is patent. A large 13.4mm calculus seen within gallbladder lumen with diffuse wall thickening , pericholecystic edema and significant fat stranding. Fat stranding with ill defined fluid also seen in right paracolic gutter. Diverticulum measuring 2.5x1.7cm seen arising from D3 segment of duodenum causing extenal compression over distal CBD leading dilatation of CBD, CHD and mild bilobar intrahepatic biliary radicle dilatation. Enhancing oval shaped lesion in periportal region measuring 14 mm in short axis diameter. The spleen, pancreas, and adrenal glands are unremarkable. The kidneys are normal in size and attenuation. There is no hydronephrosis or perinephric fat stranding. No renal calculi or renal masses are identified. The ureters are normal in caliber and no ureteral calculi are seen. The bladder is normal in contour. Long segment mural stratification seen in sigmoid and descending colon. Few small diverticuli of 2mm seen in sigmoid colon. No inflammatory changes. The appendix is visualized in the right lower quadrant and appears within normal limits. No adenopathy or fluid collections are seen. A cystic lesion measuring 6.6x4.5cm seen in right adnexa. No enhancing solid component/septation seen. Small left ovarian cyst of 2.7x2cm. The aorta is normal in caliber. Diffuse atherosclerotic wall calcification of abdominal aorta. No aggressive appearing osseous lesions are identified. IMPRESSION: 1. Acute calculus cholecystitis. 2. 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 3. Uncomplicated sigmoid colon diverticulosis. 4. Long segment mural stratification seen in sigmoid and descending colon- Possible early colitis. 5. Large right ovarian cyst and small left ovarian cyst. Suggested ultrasound/ MRI pelvis and serum CA 125 levels correlation. 6. Enhancing oval shaped lesion in periportal region measuring 14 mm in short axis diameter. Likely lymph node- reactive. Medications Administered ER medications given: Normal saline 1 L bolus Acetaminophen 650 mg p.o. Zosyn 4.5 g IV Normal saline 250 mL liter bolus Potassium chloride 40 mEq p.o. Potassium chloride 10 mEq IV x4 Magnesium sulfate 1 g IV x2 ECG Rate (beats per minute): 99 Rhythm: normal sinus Findings: + left axis deviation; no acute ischemic change Comparison ECG Date: no prior available Code Status & VTE Plan Code Status Full VTE Prophylaxis Plan VTE Prophylaxis will be ordered: Yes PG Care Time/CCT Total # of Minutes Spent Total Time Spent with Patient: Total time spent is greater than 50% in coordination of care (as documented) at patient's floor/unit and/or counseling patient: Coding Level of Care Code 41802 INT INP/OBS CARE 3/75MIN Diagnoses Mass, ovarian N83.8 Thyroid nodule E04.1 Sepsis A41.9 Cholecystitis K81.9
--- NOTE | 2025-02-17 03:38 | Emergency Department Note ---
ED Visit Note I was consulted by the Advanced Practice Provider, Flakita Woo PA-C. I personally made/approved the management plan and take responsibility for the patient management. I performed a substantive portion of the visit. This includes the aspects of lab interpretation, noting elevated WBC, trop and procalcitonin. Mag and potassium were repleted. CT reveals acute cholecystitis with duodenal diverticulum and compression of biliary tree. IV zosyn was administered. Pt was d/w medicine with surgical consultation. Please see Flakita Woo PA-C's notes for further details of the history, physical and visit. .
[2025-02-17] MEDS ORDERED: MoRPHine SULFATE 2 MG/ML CARP IV PRN ×2 (05:17)
[2025-02-17] MEDS: cefTRIAXone SODIUM 2,000 MG/50 ML BAG IV SCH (05:18)
--- NOTE | 2025-02-17 05:30 | Ultrasound Report ---
EXAM: US pelvic complete CLINICAL HISTORY: Mass on CT. TECHNIQUE: Ultrasound examination of the pelvis was performed in real time and duplex using trans-abdominal approach. The vascular flow was evaluated using color flow and with a spectral pattern of the flow waveform. COMPARISON: Prior CT dated 02/17/2025 for comparison. FINDINGS: Uterus: Uterus shows post menopausal status. No evidence of uterine masses, fibroids, or endometrial thickening. Endometrial stripe thickness: 3 mm. Ovaries: Large thin walled unilocular cyst of 6.4 x 5.1 x 5.3 cm in right ovary. No internal septations or mural nodularity. Normal vascularity in right ovary. Left ovary not visualised, obscured by gas shadows. Adnexa: Obscured by gas shadows. Bladder: Urinary bladder: Normal distension. No evidence of bladder wall thickening, masses, or intraluminal stones. IMPRESSION: 1. Large thin walled unilocular cyst of 6.4 x 5.1 x 5.3 cm in right ovary, stable. 2. Left ovary not visualised, obscured by gas shadows. RECOMMENDATIONS: Clinical correlation with symptoms and further evaluation as indicated. Electronically signed by Oz Juarez 02-17-2025 05:30 AM
[2025-02-17] MEDS: metroNIDAZOLE 500 MG/100 ML BAG IV SCH (05:35)
--- NOTE | 2025-02-17 05:35 | Ultrasound Report ---
EXAM: US gallbladder CLINICAL HISTORY: Cholecystitis. TECHNIQUE: Limited ultrasound of the liver and gallbladder was performed in greyscale and Doppler. Multiple images were obtained in transverse and longitudinal planes. COMPARISON: same day prior CT abdomen. FINDINGS: Liver: Liver size: 14 cm. The liver appears normal in size with homogeneous echotexture. No evidence of focal lesions, cysts, or masses. Hepatic vasculature appears normal. Gallbladder: Gallbladder size: A 16 mm gallstone, with wall thickening measured 10 mm, and pericholecystic fluid pockets measured 1.1 x 2.7 cm and 0.9 x 3.1 cm were noted. Commet tail artifacts, representing Adenomyomatosis of the gallbladder. Noted. Biliary Tree: The common bile duct diameter is dilated, measured at 9.8 mm. Tawny hepatis lymph node noted measured 1.1 x 2 cm. IMPRESSION: 1. Acute calculus cholecystitis. Stable. 2. Adenomyomatosis of the gallbladder. 3. The common bile duct diameter is dilated, measured 9.8 mm. Electronically signed by Oz Juarez 02-17-2025 05:34 AM
[2025-02-17 05:51] LABS: Lipase < 3 U/L (11-82); Thyroid Stimulating Hormone 0.592 uIu/ml (0.300-4.500)
[2025-02-17] MEDS: NSS + 20MEQ KCL 20 MEQ/1,000 ML BAG IV SCH (06:55)
[2025-02-17] MEDS: ONDANSETRON INJ 2 MG/ML 2 ML VIAL IV PRN (09:23)
[2025-02-17 09:27] LABS: Hematocrit (blood only) 38.8 % (37.0-47.0); Hemoglobin 13.1 g/dl (12.0-16.0); Mean Corpuscular Hemoglobin 30.9 pg (25.0-34.0); Mean Corpuscular Hgb Conc 33.8 g/dL (32.0-36.0); Mean Corpuscular Volume 91.5 fL (80.0-100.0); Mean Platelet Volume 12.1 fL (9.4-12.4); Platelet Count 175 K/uL (130-400); RDW Coefficient of Variation 12.9 % (11.5-14.5); RDW Standard Deviation 42.9 fL (36.4-46.3); Red Blood Count 4.24 M/uL (4.20-5.40); White Blood Count 18.69 K/ul (4.8-10.8)
[2025-02-17] MEDS: ACETAMINOPHEN 1,000 MG/100 ML VIAL IV PRN (09:27)
[2025-02-17 09:49] LABS: Albumin Level 3.2 gm/dl (3.4-5.0); BUN Creatinine Ratio 23.1 (10-20); Calcium 8.4 mg/dl (8.6-10.3); Potassium 4.4 mmol/L (3.5-5.1)
[2025-02-17 09:50] LABS: Albumin Globulin Ratio 1.1 (0.9-2); Bilirubin,Total 0.5 mg/dl (0.2-1.0); Globulin 2.8 gm/dl (2.5-4.0)
--- NOTE | 2025-02-17 10:27 | Electrocardiogram Report ---
Test Reason : Blood Pressure : */* mmHG Vent. Rate : 99 BPM Atrial Rate : 99 BPM P-R Int : 156 ms QRS Dur : 84 ms QT Int : 348 ms P-R-T Axes : 79 -46 50 degrees QTcB Int : 446 ms Normal sinus rhythm Biatrial enlargement Left axis deviation Septal infarct , age undetermined Abnormal ECG No previous ECGs available Confirmed by Oracio Deng ([id number]) on 02/17/2025 10:27:36 AM Referred By: REFERRED SELF Confirmed By: Oracio Deng
[2025-02-17] MEDS: NICOTINE 7 MG/24 HR TDSY TD SCH (10:59)
--- NOTE | 2025-02-17 16:45 | Consultation ---
Date of Consultation February 17, 2025 Assessment & Plan (1) Ovarian cyst: Plan Advised to have follow-up and possible removal of right ovarian cyst in the future. History of Present Illness Reason for Consultation: Right sided ovarian cyst. Cyst size is 5 to 6 cm. Cyst is unilocular. Attending Physician: Kalyani Fitch MD History of Present Illness Patient is 70-year-old 2 para 2 history of 2 C-sections. Has not seen a physician in 30 years. Has not been obtaining routine Pap smears. Has not had routine mammograms. She underwent menopause at age 53. She has had no bleeding since. She was seen in ER for right upper quadrant pain. Been present now for 3 days. Been evaluated by CT and ultrasound. She has gallstones with distention of the common duct. And inflammation. Presently she has been treated with antibiotics for cholecystitis. Pelvic findings are incidental. Recommendations are that she is evaluated after the present problem is over. I discussed this with the patient. That eventually she needs a Pap smear. Reevaluation of the right sided cyst. And possible removal. I offered to do her Pap smear during her present visit. She decided to do this in the future. Allergies Allergy/AdvReac Type Severity Reaction Status Date / Time No Known Allergies Allergy Unverified 02/17/25 01:51 Home Medications Medication Instructions Recorded Confirmed Type No Known Home Medications 02/17/25 02/17/25 History Patient History Social History Smoking Status: Never smoker Tobacco Type: Cigarettes Hx Alcohol Use: No Hx Substance Use: No Preferred Language: Japanese Air And Water Tester Required: No Beliefs That Will Affect Care: None Current Living Situation: Family Feels Safe at Home: Yes Safety Concerns: Feels Safe At This Time Assistive Devices: Glasses Physical Exam Physical Exam: Patient appeared to be 70-year-old white female alert oriented x 3 cooperative in moderate distress. Heart had a regular rhythm S1 and S2 were normal. Breast exam was normal. Chest was clear to auscultation percussion. Neck was supple trachea midline there were no cervical adenopathy. Extraocular movements were intact. Patient was missing all of her teeth. No calf tenderness. No palpable pelvic tenderness. Patient was tender to palpation right upper quadrant. Results & Data Vital Signs (Past 12 Hours) Vital Signs Temp Pulse Pulse Resp BP Pulse Ox O2 Del Method 02/17/25 14:56 83 02/17/25 11:11 36.8 C 99 H 16 145/76 H 93 Room Air 02/17/25 08:32 Room Air 02/17/25 07:12 81 02/17/25 07:00 81 19 136/90 94 Room Air 02/17/25 06:00 36.6 C 76 19 161/71 H 94 Room Air 02/17/25 05:18 Room Air 02/17/25 05:18 74 20 148/71 H 93 Room Air 02/17/25 04:53 82 22 93 Room Air Diagnostic Findings Gallstones with cholecystitis partial obstruction of the duct.
--- NOTE | 2025-02-17 17:50 | Communication Note ---
Date of Service: February 17, 2025 Please refer to the H&P dictated earlier this morning for details of presentation on admission. In brief, this patient presented with nausea, vomiting, diarrhea and a right upper quadrant abdominal pain. Right upper quadrant ultrasound confirmed acute calculus cholecystitis. General surgery consulted. Planning to take the patient to the OR tomorrow. A large right ovarian cyst was incidentally noted on the abdominal CT. Pelvic ultrasound confirmed it. TRIMMER AND BORER MACHINE OPERATOR was consulted who recommended outpatient follow-up to pursue this. 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 She is completely asymptomatic. I will speak to vascular surgery. I will also ask the surgery team to push back her OR time to a little bit later in the day tomorrow 02/18 so it allows me some time to speak to vascular surgery prior to the OR. Preop evaluation: The patient denies any chest pain or shortness of breath. She does not complain of any angina or does not have any history of ischemic heart disease. No CHF symptoms. No known cerebrovascular disease. No history of diabetes. No CKD. And is undergoing a relatively low to intermediate risk procedure. She has 0 predictors and her RCRI index was 0.4% risk of cardiac , nonfatal VT and nonfatal cardiac arrest.
[2025-02-17] MEDS: LACTATED RINGER'S 1,000 ML IV SCH (22:38)
[2025-02-18 05:56] LABS: Basophils # (auto) 0.03 K/uL (0.00-0.20); Basophils % (auto) 0.2 %; Eosinophils # (auto) 0.08 K/uL (0.00-0.50); Eosinophils % (auto) 0.6 %; Hematocrit (blood only) 34.7 % (37.0-47.0); Hemoglobin 11.4 g/dl (12.0-16.0); Immature Granulocytes # (auto) 0.09 K/uL (0.01-0.20); Immature Granulocytes % (auto) 0.7 %; Lymphocytes % (auto) 8.9 %; Mean Corpuscular Hemoglobin 30.4 pg (25.0-34.0); Mean Corpuscular Hgb Conc 32.9 g/dL (32.0-36.0); Mean Corpuscular Volume 92.5 fL (80.0-100.0); Monocytes # (auto) 0.57 K/uL (0.11-0.59); Monocytes % (auto) 4.2 %; Neutrophils # (auto) 11.53 K/uL (1.40-6.50); Neutrophils % (auto) 85.4 %; Platelet Count 158 K/uL (130-400); RDW Coefficient of Variation 13.6 % (11.5-14.5); RDW Standard Deviation 46.4 fL (36.4-46.3); Red Blood Count 3.75 M/uL (4.20-5.40)
[2025-02-18 06:08] LABS: Albumin Globulin Ratio 1.1 (0.9-2); Albumin Level 2.8 gm/dl (3.4-5.0); BUN Creatinine Ratio 32.7 (10-20); Bilirubin,Total 0.4 mg/dl (0.2-1.0); Calcium 8.2 mg/dl (8.6-10.3); Creatinine Clr Calc Pharmacy 84.1 ml/min; Globulin 2.6 gm/dl (2.5-4.0); Potassium 4.5 mmol/L (3.5-5.1); Total Protein 5.4 gm/dl (6.0-8.3)
[2025-02-18] MEDS ORDERED: LIDOCAINE 2% 2 ML VIAL/AMP(20MG/ML) INFIL ONE (07:01)
[2025-02-18] MEDS ORDERED: PROPOFOL IV EMULSION 10 MG/ML 20 ML VIAL IV ONE (07:01)
[2025-02-18] MEDS ORDERED: ROCURONIUM BROMIDE 10 MG/ML 5 ML VIAL IV ONE (07:01)
--- NOTE | 2025-02-18 08:38 | Communication Note ---
Date of Service: February 18, 2025 I spoke to Heather, vascular surgery PA, about the CTA chest showing outpouching from aortic arch. She reviewed the CT findings with Dr. 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 Dr. Mishra does not think there is anything to do at this point and does not even think she needs to follow-up with vascular surgery because of this. From a vascular standpoint, because of the CT findings, he did not think there was any reason to withhold surgery. I informed Shell Grace from general surgery that the preop evaluation has been completed and that the CTA chest findings do not pose any extra threat beyond what is already documented in my previous note.
--- NOTE | 2025-02-18 08:40 | Anesthesiology Consultation ---
Date of Service February 18, 2025 Assessment & Plan (1) Encounter for pre-operative examination: Chart Review Chart Review: Acceptable Risk for Surgery History Surgery Operation Date: 02/18/25 07:00 Proposed Procedures p Robotic Laparoscopic Cholecystectomy - Sophia Arita DO Height/Weight Height: 5 ft 3 in Weight: 52.2 kg Allergies Allergy/AdvReac Type Severity Reaction Status Date / Time No Known Allergies Allergy Unverified 02/17/25 01:51 Medications Home Medications Medication Instructions Recorded Confirmed Last Taken No Known Home Medications 02/17/25 02/17/25 Unknown Active Medications Generic Name Dose Route Start Last Admin Trade Name Freq PRN Reason Stop Dose Admin Ceftriaxone Sodium 2,000 mg in 50 mls @ 100 mls/hr 02/17/25 05:00 02/18/25 06:39 Rocephin IV 02/27/25 04:59 Infused Q24H CRUZ Infusion Metronidazole 500 mg in 100 mls @ 100 mls/hr 02/17/25 05:00 02/18/25 07:07 Flagyl IV 02/27/25 04:59 Infused Q8H CRUZ Infusion Protocol Acetaminophen 1,000 mg in 100 mls @ 400 mls/hr 02/17/25 05:17 02/18/25 06:14 Ofirmev IV 02/20/25 05:16 Infused Q8H PRN Infusion pain or fever Lactated Ringer's 1,000 mls @ 80 mls/hr 02/17/25 20:45 02/17/25 22:38 Lr IV 02/18/25 09:14 80 mls/hr .[id number] CRUZ Administration Miscellaneous 1 each 02/17/25 08:59 02/18/25 08:37 Remove Nicoderm Patch N/A 03/19/25 08:58 Not Given DAILY@[id number] CRUZ Nicotine 1 patch 02/17/25 09:00 02/18/25 08:37 Nicotine 7 Mg/24 Hr Tdsy TD 03/19/25 08:59 Not Given QAM CRUZ Ondansetron HCl 4 mg 02/17/25 09:11 02/17/25 09:23 Ondansetron Inj 2 Mg/Ml 2 Ml Vial IV 03/19/25 09:10 4 mg Q6H PRN Administration Nausea And Vomiting Past Medical History Medical History (Updated 02/18/25 @ 08:46 by Chano Fofana MD) Anemia Diverticula of intestine Ovarian cyst Thyroid nodule Past Surgical History Surgical History (Updated 02/18/25 @ 08:44 by Chano Fofana MD) No pertinent past surgical history Social History Smoking Status: Never smoker Hx Alcohol Use: No Hx Substance Use: No Physical Exam Vital Signs Last Vital Signs Temp 36.6 C 02/18/25 07:00 Pulse 73 02/18/25 07:00 Resp 16 02/18/25 07:00 BP 161/76 H 02/18/25 07:00 Pulse Ox 92 02/18/25 07:00 O2 Del Method Room Air 02/18/25 07:00 Testing Laboratory Results 02/18/25 05:35 02/18/25 05:35 Urine Color Dark Yellow 02/17/25 00:58 Urine Appearance Cloudy (Clear) A 02/17/25 00:58 Urine pH 5.5 (4.5-7.5) 02/17/25 00:58 Ur Specific [place] 1.027 (1.000-1.030) 02/17/25 00:58 Urine Protein 2+ (Negative) H 02/17/25 00:58 Urine Glucose (UA) Negative (Negative) 02/17/25 00:58 Urine Ketones Trace (Negative) H 02/17/25 00:58 Urine Nitrite Negative (Negative) 02/17/25 00:58 Ur Leukocyte Esterase 1+ (Negative) H 02/17/25 00:58 Urine WBC (Auto) 6-10 /hpf (0-5) H 02/17/25 00:58 Urine RBC (Auto) 6-10 /hpf (0-2) H 02/17/25 00:58 U Hyaline Cast (Auto) 6-10 /lpf (0-2) H 02/17/25 00:58 U Epithel Cells (Auto) 6-10 /hpf (0-2) H 02/17/25 00:58 Urine Bacteria (Auto) 1+ (None Seen) H 02/17/25 00:58 02/17/25 00:27 Aerobic Blood Culture - Preliminary Blood No growth in Aerobic bottle after 24 hours. Anaerobic Blood Culture - Preliminary No growth in Anaerobic bottle after 24 hours. 02/16/25 23:55 Aerobic Blood Culture - Preliminary Blood No growth in Aerobic bottle after 24 hours. Anaerobic Blood Culture - Preliminary No growth in Anaerobic bottle after 24 hours. Electrocardiogram Date: 02/17/25 Findings: + NSR @ (99) and + poor R wave progression Chest X-Ray Date: 02/17/25 Findings: + NAD
[2025-02-18] MEDS ORDERED: fentaNYL citrate PF 100 MCG/2 ML VIAL ONE ×2 (08:48→11:33)
[2025-02-18] MEDS ORDERED: ONDANSETRON INJ 2 MG/ML 2 ML VIAL ONE (08:48)
[2025-02-18] MEDS ORDERED: DEXAMETHASONE SOD INJ 4 MG/ML VIAL ONE (08:48)
[2025-02-18] MEDS ORDERED: MIDAZOLAM HCL 1 MG/ML 2ML VIAL ONE (08:48)
--- NOTE | 2025-02-18 09:49 | Surgery Progress Note ---
Date of Service February 18, 2025 Assessment & Plan (1) Cholecystitis: Admission and Anticipated Discharge Date Admission Date: February 17, 2025 Supervising Physician Co-Signing Physician Notes Plan for laparoscopic cholecystectomy. The details of this procedure have been explained to her including the risks, benefits and alternatives. She expressed understanding of this explanation and all of her questions were answered. Consent was obtained. Subjective I have seen and examined this patient this am. She continues with RUQ pain and TTP. Denies nausea. Physical Exam Constitutional: + thin; not ill appearing, not in distre ss and not diaphoretic Respiratory: normal respiratory effort; no respiratory distress, no labored breathing and does not use accessory muscles Gastrointestinal (Abdomen): Inspection/Auscultation: abdomen not distended Percussion/Palpation: + abdomen tender (TTP RUQ), + guarding (voluntary) and abdomen soft Results & Data Vital Signs (Past 12 Hours) Vital Signs Temp Pulse Pulse Resp BP Pulse Ox O2 Del Method 02/18/25 09:10 36.6 C 72 24 201/115 H 94 Room Air 02/18/25 08:41 Room Air 02/18/25 07:00 36.6 C 73 16 161/76 H 92 Room Air 02/18/25 02:58 36.5 C 80 18 173/81 H 96 Room Air 02/17/25 23:05 36.8 C 78 18 175/80 H 94 Room Air 02/17/25 21:56 79 PG Care Time/CCT Total # of Minutes Spent Total Time Spent with Patient: Total time spent is greater than 50% in coordination of care (as documented) at patient's floor/unit and/or counseling patient: Coding Level of Care Code 29103 SUB INP/OBS CARE 11/21MIN Diagnoses Cholecystitis K81.9
[2025-02-18] MEDS: INDOCYANINE GREEN 25 MG VIAL INJ ONE (09:51)
[2025-02-18] MEDS ORDERED: PROMETHAZINE HCL 6.25 MG in SODIUM CHLORIDE 0.9% 50 ML IV PRN (10:01)
[2025-02-18] MEDS ORDERED: LABETALOL HCL IV 5 MG/ML 20ML IV PRN (10:01)
[2025-02-18] MEDS ORDERED: ATROPINE SULFATE 0.1 MG/ML 10ML SYR IV PRN (10:01)
[2025-02-18] MEDS ORDERED: LABETALOL HCL IV 5 MG/ML 20ML IV ONE (12:05)
[2025-02-18] MEDS: BUPIVACAINE 0.5 % 5 MG/1 ML MPF 30ML VIAL ONE (13:12)
--- NOTE | 2025-02-18 13:20 | Operative Report ---
PG Post Operative Report Pre & Post Diagnosis Operation Date: 02/18/25 07:00 Pre-Op Diagnosis: Acute cholecystitis Post-Op Diagnosis: Acute cholecystitis I identified the patient and participated in the time-out.: Yes Procedure Operation Date: 02/18/25 07:00 Actual Procedures p Robotic Laparoscopic Cholecystectomy(Not Applicable) - Sophia Woo DO Surgeon Sophia Arita DO Flight Operations Engineer MILE Gonzalez Estimated Blood Loss 75 Findings See Below purulent gallbladder, densely adhesed very difficult case Specimens Gallbladder Drains none Anesthesia Type General Complications None Indications acute cholecystitis Description of Procedure The patient was brought back to the operating room and placed on the operating room table in supine position. She was connected to cardiac and oxygen monitoring, supplemental O2 was provided and SCDs were applied to bilateral lower extremities. Local anesthetic was used anesthetize the skin and subcutaneous tissues prior to making all incisions and all incisions were made with 11 blade. Intra-abdominal access was gained at the infraumbilical fold using a Veress needle and this was confirmed with a saline drop test. CO2 insufflation was initiated and pneumoperitoneum was established local pressure 15 mmHg. Once this pressure was reached, using direct visualization, an 8 mm trocar was inserted using a 5 mm laparoscope and an 8 mm robotic Optiview port. Purulent exudate was identified upon entering the abdomen. 2 additional 8 mm robotic ports were inserted the right and left upper quadrants. The stomach was adhesed as well up to the medial side of the gallbladder. The omentum was densely adhesed to the quite a bit of time to carefully and gingerly bluntly dissect these adhesions away from the gallbladder in an effort to expose the full length of the gallbladder. The liver at this area was very friable and there was bleeding that was controlled using cautery. During this time because the gallbladder wall was very thickened it was difficult to grasp it and it was fibrinous in some locations. The gallbladder was entered and pus was expressed. This was quickly suctioned away. The eventually the infundibulum of the gallbladder was exposed and there was a large vessel that was adhesed to this area. This was gently teased down to further expose the cystic duct and cystic artery. Dissection was performed using alternating blunt and cautery dissection. Once the critical structures were isolated, the robot was deployed, docked instruments loaded and targeted. At the console, the cystic duct and artery were each ligated using 2 Hem-o-anuel clips proximally, 1 distally. The structure was then transected using cutting energy on the hook. The gallbladder was then cauterized away from the liver bed. Bleeding along the way was controlled using cautery. The gallbladder was placed in an Endo Catch bag and removed via the right upper quadrant port site. The gallbladder was then placed in a labeled container sent to pathology for further analysis. The area was copiously irrigated and suctioned. The liver bed was checked for hemostasis multiple times. Hemostasis again was controlled using cautery. Once hemostasis was adequate the area was irrigated and suction 1 more time. The instruments were removed, CO2 insufflation was discontinued and excess pneumoperitoneum was evacuated. The robot was docked and cleared from the patient. The trocars were removed. The OR table was returned to the neutral position. The skin skin incisions were approximated using 4-0 Monocryl suture. The abdomen was wiped clean with a saline soaked lap pad and dried. The incisions were further sealed with Dermabond. The patient tolerated procedure well. She was awakened from anesthesia, the secure airway was removed and she was transferred to recovery in stable condition. I attest to the content of the Intraoperative Record and any orders documented therein. Any exceptions are noted below.
[2025-02-18] MEDS ORDERED: NEOSTIGMINE METHYLSULFATE 1 MG/ML 10ML VIAL ONE (13:25)
[2025-02-18] MEDS ORDERED: GLYCOPYRROLATE 0.2 MG/ML VIAL ONE (13:25)
[2025-02-18] MEDS: KETOROLAC 30 MG/ML VIAL IV PRN (13:30)
[2025-02-18] MEDS: fentaNYL citrate PF 100 MCG/2 ML VIAL IV PRN (13:35)
[2025-02-18] MEDS: fentaNYL citrate PF 100 MCG/2 ML VIAL ONE (13:46)
[2025-02-18] MEDS: KETOROLAC 30 MG/ML VIAL ONE (13:46)
--- NOTE | 2025-02-18 13:55 | Anesthesiology Progress Note ---
Date of Service February 18, 2025 Anesthesia Post Procedure Vital Signs Vital Signs: Temp Pulse Pulse Resp BP Pulse Ox O2 Del Method 02/18/25 13:40 70 20 174/85 H 96 Room Air 02/18/25 13:30 72 22 176/74 H 96 Room Air 02/18/25 13:21 36.6 C 72 16 185/76 H 97 Oxymask 02/18/25 09:10 36.6 C 72 24 201/115 H 94 Room Air 02/18/25 08:41 Room Air 02/18/25 07:00 36.6 C 73 16 161/76 H 92 Room Air 02/18/25 02:58 36.5 C 80 18 173/81 H 96 Room Air 02/17/25 23:05 36.8 C 78 18 175/80 H 94 Room Air 02/17/25 21:56 79 02/17/25 21:00 Room Air 02/17/25 19:02 36.8 C 78 18 172/78 H 94 Room Air 02/17/25 17:09 36.6 C 86 17 166/81 H 93 Room Air 02/17/25 16:55 90 02/17/25 16:51 Room Air 02/17/25 14:56 83 O2 Flow Rate 02/18/25 13:40 02/18/25 13:30 02/18/25 13:21 6 02/18/25 09:10 02/18/25 08:41 02/18/25 07:00 02/18/25 02:58 02/17/25 23:05 02/17/25 21:56 02/17/25 21:00 02/17/25 19:02 02/17/25 17:09 02/17/25 16:55 02/17/25 16:51 02/17/25 14:56 Pain Intensity Right Upper Abdomen: Pain Intensity: 5 Abdomen: Pain Intensity: 8 Transfer of Care Handoff Completed per policy Notes Mental Status: alert / awake / arousable Patient Amnestic to Procedure: Yes Nausea / Vomiting: adequately controlled Pain: adequately controlled Airway Patency, RR, SpO2: stable & adequate BP & HR: stable & adequate Hydration State: stable & adequate Anesthetic Complications: no major complications apparent
[2025-02-18] MEDS: LACTATED RINGER'S 1,000 ML IV SCH (14:56)
--- NOTE | 2025-02-18 15:02 | Hospitalist Progress Note ---
Date of Service February 18, 2025 Assessment & Plan (1) Mass, ovarian: (2) Thyroid nodule: (3) Sepsis: (4) Cholecystitis: Plan 70-year-old female presents to the ER with nausea vomiting diarrhea and right upper quadrant abdominal pain #Sepsis / acute cholecystitis Status post laparoscopic cholecystectomy 02/18 On IV ceftriaxone and IV metronidazole Follow-up cultures Clear liquid diet Continue IV fluids for now Leukocytosis improving #Abnormal ascending aorta Spoke to vascular surgery who states the aortic arch finding is most likely due to a small ulcerated plaque that is old and is not causing any problems. The p atient does not even need to follow-up with vascular surgery. 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 Feels well overall. Denies chest pain or shortness of breath. Review of Systems Review of Systems: All systems reviewed & are unremarkable except as noted in Subjective Physical Exam Physical Exam: General: Awake, conversant. Intercostal and bitemporal muscle wasting noted. Heart: S1, S2/regular rate and rhythm, no murmur rubs or gallops Lungs: Clear to auscultation bilaterally. Normal effort Abdomen: Soft/nontender/nondistended. No hepatosplenomegaly Extremities: No clubbing/cyanosis. No edema Behavior: Appropriate, cooperative Results & Data Results & Data Vital Signs (Past 12 Hours) Vital Signs Temp Pulse Pulse Resp BP BP Pulse Ox 02/18/25 14:42 36.3 C L 74 17 164/77 H 94 02/18/25 14:20 37 C 74 18 164/69 H 95 02/18/25 14:10 74 16 156/68 H 96 02/18/25 14:00 73 14 132/73 94 02/18/25 13:50 72 18 148/70 H 96 02/18/25 13:40 70 20 174/85 H 96 02/18/25 13:30 72 22 176/74 H 96 02/18/25 13:21 36.6 C 72 16 185/76 H 97 02/18/25 09:10 36.6 C 72 24 201/115 H 94 02/18/25 08:41 02/18/25 07:00 82 02/18/25 07:00 36.6 C 73 16 161/76 H 92 O2 Del Method O2 Flow Rate 02/18/25 14:42 Room Air 02/18/25 14:20 Room Air 02/18/25 14:10 Room Air 02/18/25 14:00 Room Air 02/18/25 13:50 Room Air 02/18/25 13:40 Room Air 02/18/25 13:30 Room Air 02/18/25 13:21 Oxymask 6 02/18/25 09:10 Room Air 02/18/25 08:41 Room Air 02/18/25 07:00 02/18/25 07:00 Room Air Laboratory Results Abnormal lab results 02/18/25 Range/Units 05:35 WBC 13.50 H (4.8-10.8) K/ul RBC 3.75 L (4.20-5.40) M/uL Hgb 11.4 L (12.0-16.0) g/dl Hct 34.7 L (37.0-47.0) % RDW Std Deviation 46.4 H (36.4-46.3) fL Neut # (Auto) 11.53 H (1.40-6.50) K/uL Chloride 113 H (98-107) mmol/L Creatinine 0.52 L (0.6-1.2) mg/dl BUN/Creatinine Ratio 32.7 H (10-20) Calcium 8.2 L (8.6-10.3) mg/dl AST 10 L (13-39) U/L ALT 5 L (7-52) U/L Total Protein 5.4 L (6.0-8.3) gm/dl Albumin 2.8 L (3.4-5.0) gm/dl PG Care Time/CCT Total # of Minutes Spent Total Time Spent with Patient: Total time spent is greater than 50% in coordination of care (as documented) at patient's floor/unit and/or counseling patient: Coding Level of Care Code 21311 SUB INP/OBS CARE 2/35MIN Diagnoses Mass, ovarian N83.8 Thyroid nodule E04.1 Sepsis A41.9 Cholecystitis K81.9
[2025-02-18] MEDS ORDERED: hydrALAZINE HCL 20 MG/ML VIAL IV PRN (17:00)
[2025-02-18] MEDS: amLODIPine BESYLATE 5 MG TAB PO SCH (18:35)
[2025-02-19] MEDS: oxyCODONE HCL IR 5 MG TAB (IMMEDIATE RELEASE) PO PRN ×2 (03:44→20:17)
[2025-02-19 06:13] LABS: Basophils # (auto) 0.01 K/uL (0.00-0.20); Basophils % (auto) 0.1 %; Hematocrit (blood only) 33.7 % (37.0-47.0); Hemoglobin 11.3 g/dl (12.0-16.0); Immature Granulocytes # (auto) 0.09 K/uL (0.01-0.20); Immature Granulocytes % (auto) 0.7 %; Lymphocytes # (auto) 0.93 K/uL (1.20-3.40); Lymphocytes % (auto) 7.6 %; Mean Corpuscular Hemoglobin 30.6 pg (25.0-34.0); Mean Corpuscular Hgb Conc 33.5 g/dL (32.0-36.0); Mean Corpuscular Volume 91.3 fL (80.0-100.0); Mean Platelet Volume 12.2 fL (9.4-12.4); Monocytes # (auto) 0.49 K/uL (0.11-0.59); Neutrophils # (auto) 10.76 K/uL (1.40-6.50); Neutrophils % (auto) 87.6 %; Platelet Count 188 K/uL (130-400); RDW Coefficient of Variation 13.6 % (11.5-14.5); RDW Standard Deviation 46.1 fL (36.4-46.3); Red Blood Count 3.69 M/uL (4.20-5.40); White Blood Count 12.28 K/ul (4.8-10.8)
[2025-02-19 06:34] LABS: Albumin Level 2.8 gm/dl (3.4-5.0); BUN Creatinine Ratio 32.1 (10-20); Bilirubin,Total 0.3 mg/dl (0.2-1.0); Calcium 8.3 mg/dl (8.6-10.3); Creatinine Clr Calc Pharmacy 78.1 ml/min; Globulin 2.9 gm/dl (2.5-4.0); Potassium 4.2 mmol/L (3.5-5.1); Total Protein 5.7 gm/dl (6.0-8.3)
--- NOTE | 2025-02-19 08:47 | Surgery Progress Note ---
Date of Service February 19, 2025 Assessment & Plan (1) Cholecystitis: Plan: POD 1 s/p laparoscopic/robotic assisted cholecystectomy for a purulent gallbladder that had been densely adhesed to surrounding structures May have a regular diet. May discharge if she feels well this afternoon and no medical concerns for continued observation Discharge on abx for a total of 7 days. Follow up in the office in 2-3 weeks. Admission and Anticipated Discharge Date Admission Date: February 17, 2025 Subjective Pt seen and examined this am. She is without complaints and admits her pain is well controlled. Physical Exam Constitutional: + thin; not ill appearing Gastrointestinal (Abdomen): Inspection/Auscultation: + abdomen distended Percussion/Palpation: abdomen soft; abdomen nontender surgical incisions are intact with skin glue Results & Data Vital Signs (Past 12 Hours) Vital Signs Temp Pulse Pulse Resp BP Pulse Ox O2 Del Method 02/19/25 07:00 36.7 C 71 16 124/69 92 Room Air 02/19/25 03:43 36.4 C L 76 18 153/68 H 92 Room Air 02/18/25 23:28 36.8 C 75 18 134/77 91 Room Air 02/18/25 21:48 76 Results Complete Blood Count Results: RBC 3.69 M/uL (4.20-5.40) L 02/19/25 WBC 12.28 K/ul (4.8-10.8) H 02/19/25 Hgb 11.3 g/dl (12.0-16.0) L 02/19/25 Hct 33.7 % (37.0-47.0) L 02/19/25 Plt Count 188 K/uL (130-400) 02/19/25 Results CMP Results: Sodium 140 mmol/L (136-145) 02/19/25 Potassium 4.2 mmol/L (3.5-5.1) 02/19/25 Chloride 110 mmol/L (98-107) H 02/19/25 Carbon Dioxide 24 mmol/L (21-32) 02/19/25 Anion Gap 6 (3-11) 02/19/25 BUN 18 mg/dl (6-23) 02/19/25 Creatinine 0.56 mg/dl (0.6-1.2) L 02/19/25 eGFR 98.73 02/19/25 BUN/Creatinine Ratio 32.1 (10-20) H 02/19/25 Glucose 143 mg/dl (70-99(Fasting)) H 02/19/25 Calcium 8.3 mg/dl (8.6-10.3) L 02/19/25 Total Bilirubin 0.3 mg/dl (0.2-1.0) 02/19/25 Direct Bilirubin 0.2 mg/dl (0-0.2) 02/17/25 AST 32 U/L (13-39) 02/19/25 ALT 13 U/L (7-52) 02/19/25 Alkaline Phosphatase 92 U/L (34-104) 02/19/25 Total Protein 5.7 gm/dl (6.0-8.3) L 02/19/25 Albumin 2.8 gm/dl (3.4-5.0) L 02/19/25 Globulin 2.9 gm/dl (2.5-4.0) 02/19/25 Albumin/Globulin Ratio 1.0 (0.9-2) 02/19/25 PG Care Time/CCT Total # of Minutes Spent Total Time Spent with Patient: Total time spent is greater than 50% in coordination of care (as documented) at patient's floor/unit and/or counseling patient: Coding Level of Care Code 88817 Post Operative Follow-Up Diagnoses Cholecystitis K81.9
[2025-02-19] MEDS ORDERED: ONDANSETRON 4 MG OD TAB PO PRN (09:48)
[2025-02-19] MEDS: ONDANSETRON 4 MG OD TAB PO ONE (10:04)
--- NOTE | 2025-02-19 14:43 | Hospitalist Progress Note ---
Date of Service February 19, 2025 Assessment & Plan (1) Mass, ovarian: (2) Thyroid nodule: (3) Sepsis: (4) Cholecystitis: Plan 70-year-old female presents to the ER with nausea vomiting diarrhea and right upper quadrant abdominal pain #Sepsis / acute cholecystitis Status post laparoscopic cholecystectomy 02/18 On IV ceftriaxone and IV metronidazole. Switch to p.o. Keflex and p.o. Flagyl Follow-up cultures Start solid diet Discontinue IV fluid Leukocytosis improving #Abnormal ascending aorta Spoke to vascular surgery who states the aortic arch finding is most likely due to a small ulcerated plaque that is old and is not causing any problems. The patient does not even need to follow-up with vascular surgery. #Thyroid nodules TSH normal Follow-up ultrasound thyroid as an outpatient #Ovarian cysts Pelvic ultrasound confirmed right ovarian cyst Follow-up with [facility] [employer] #Severe protein calorie malnutrition #Hypertension Patient was noted to have elevated blood pressure Patient has not seen a doctor in decades Started amlodipine Monitor Will need PCP arranged outpatient VTE Prophylaxis -SCDs Full code Admission and Anticipated Discharge Date Admission Date: February 17, 2025 Subjective Patient feels well overall. Tolerating solid diet. Denies chest pain or shortness of breath. Abdominal pain is improving. Review of Systems Review of Systems: All systems reviewed & are unremarkable except as noted in Subjective Physical Exam Physical Exam: General: Awake, conversant. Intercostal and bitemporal muscle wasting noted. Heart: S1, S2/regular rate and rhythm, no murmur rubs or gallops Lungs: Clear to auscultation bilaterally. Normal effort Abdomen: Soft/nontender/nondistended. No hepatosplenomegaly Extremities: No clubbing/cyanosis. No edema Behavior: Appropriate, cooperative Results & Data Results & Data Vital Signs (Past 12 Hours) Vital Signs Temp Pulse Resp BP Pulse Ox O2 Del Method 02/19/25 10:36 36.6 C 86 18 132/72 90 Room Air 02/19/25 07:00 36.7 C 71 16 124/69 92 Room Air 02/19/25 03:43 36.4 C L 76 18 153/68 H 92 Room Air Laboratory Results Abnormal lab results 02/19/25 Range/Units 05:38 WBC 12.28 H (4.8-10.8) K/ul RBC 3.69 L (4.20-5.40) M/uL Hgb 11.3 L (12.0-16.0) g/dl Hct 33.7 L (37.0-47.0) % Neut # (Auto) 10.76 H (1.40-6.50) K/uL Lymph # (Auto) 0.93 L (1.20-3.40) K/uL Chloride 110 H (98-107) mmol/L Creatinine 0.56 L (0.6-1.2) mg/dl BUN/Creatinine Ratio 32.1 H (10-20) Glucose 143 H (70-99(Fasting)) mg/dl Calcium 8.3 L (8.6-10.3) mg/dl Total Protein 5.7 L (6.0-8.3) gm/dl Albumin 2.8 L (3.4-5.0) gm/dl PG Care Time/CCT Total # of Minutes Spent Total Time Spent with Patient: Total time spent is greater than 50% in coordination of care (as documented) at patient's floor/unit and/or counseling patient: Coding Level of Care Code 20196 SUB INP/OBS CARE 2/35MIN Diagnoses Mass, ovarian N83.8 Thyroid nodule E04.1 Sepsis A41.9 Cholecystitis K81.9
[2025-02-19] MEDS: cephALEXin 500 MG CAP PO SCH (16:53)
[2025-02-19] MEDS: metroNIDAZOLE 500 MG TAB PO SCH (20:18)
--- NOTE | 2025-02-20 05:52 | Surgery Progress Note ---
Date of Service February 20, 2025 Assessment & Plan (1) Cholecystitis: Plan: POD#2 s/p laparoscopic/robotic assisted cholecystectomy for a purulent gallbladder by Dr. Arita -Patient doing well from a surgical standpoint and can be discharged when cleared by medicine team. -Recommend oral abx at time of discharge for a total of 7 days. -Patient was given post-op instructions which include: No lifting greater than 10-15 pounds No driving while taking narcotic pain medication Continue full course of abx May shower however do not soak incisions in water (bath tubs, hot tubs, or pools) -Patient will follow up with Dr. Arita in the outpatient setting in 2 weeks. Admission and Anticipated Discharge Date Admission Date: February 17, 2025 Subjective Patient seen this morning, states she is feeling good Tolerating diet without any issues Pain well controlled AM WBC pending, however she has been afebrile Physical Exam Constitutional: WD/WN, vitals as above Respiratory: normal respiratory effort, lungs clear to auscultation Cardiovascular: RRR, no murmur, no edema Gastrointestinal (Abdomen): Abdomen soft, nondistended, nontender to palpation Surgical sites are c/d/i with Dermabond in place, no overlying signs of infection Skin: no rashes, warm and dry Results & Data Vital Signs (Past 12 Hours) Vital Signs Temp Pulse Pulse Resp BP Pulse Ox O2 Del Method 02/20/25 03:52 36.5 C 103 H 18 133/69 90 Room Air 02/20/25 00:35 36.6 C 93 H 17 126/65 90 Room Air 02/19/25 23:13 90 02/19/25 19:50 36.9 C 92 H 16 111/58 L 91 Room Air PG Care Time/CCT Total # of Minutes Spent Total Time Spent with Patient: Total time spent is greater than 50% in coordination of care (as documented) at patient's floor/unit and/or counseling patient: Coding [place] [address] Post Operative Follow-Up Patient Type Established Medical Decision Making Straight Forward Diagnoses Cholecystitis K81.9
--- NOTE | 2025-02-20 09:09 | Discharge Summary ---
Date of Service February 20, 2025 Admission HPI Per Admitting Provider Olinda Olsen is a 70-year-old female who presents to the ER with 2 days of right upper quadrant abdominal pain. Severity 0/10 currently, 10/10 on Saturday. No exacerbating or alleviating factors better started to go away this morning however her son advised her to come to the ER. No nausea, vomiting, change in bowels, melena or hematochezia. No dysphagia or odynophagia. Coughing up mucus since reducing her smoking. 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 She has not seen a medical provider for 30 years. She smokes half pack a day for 54 years ([id number] history). She notes unintentional weight loss of 86 pounds over the last 3 years. Principal Diagnosis Acute cholecystitis status post laparoscopic cholecystectomy Benign essential hypertension Right ovarian cyst Thyroid nodule Discharge Exam General: Awake, conversant. Intercostal and bitemporal muscle wasting noted. Heart: S1, S2/regular rate and rhythm, no murmur rubs or gallops Lungs: Clear to auscultation bilaterally. Normal effort Abdomen: Soft/nontender/nondistended. No hepatosplenomegaly Extremities: No clubbing/cyanosis. No edema Behavior: Appropriate, cooperative Discharge Data Allergies Allergy/AdvReac Type Severity Reaction Status Date / Time No Known Allergies Allergy Unverified 02/17/25 01:51 Consultations 02/17/25 03:23 ED Decision to Admit Stat 02/17/25 09:06 Consult Gynecology Routine Procedures Performed Operation Date: 02/18/25 07:00 Actual Procedures p Robotic Laparoscopic Cholecystectomy(Not Applicable) - Sophia Woo DO Ordered Studies 02/17/25 00:01 CT Abd and Pelvis [CT abd pelvis IV con only] Stat CT angio chest PE protocol Stat 02/17/25 03:05 US GB [US gallbladder] Stat 02/17/25 03:27 US pelvic complete Stat Hospital Course (1) Mass, ovarian: (2) Thyroid nodule: (3) Sepsis: (4) Cholecystitis: Plan 70-year-old female presents to the ER with nausea vomiting diarrhea and right upper quadrant abdominal pain #Sepsis / acute cholecystitis Status post laparoscopic cholecystectomy 02/18 On IV ceftriaxone and IV metronidazole. Switched to p.o. Keflex and p.o. Flagyl to complete a 7-day course Follow-up cultures Started solid diet Discontinued IV fluid Leukocytosis resolved Surgery has cleared the patient for discharge #Abnormal ascending aorta Spoke to vascular surgery who states the aortic arch finding is most likely due to a small ulcerated plaque that is old and is not causing any problems. The patient does not even need to follow-up with vascular surgery. #Thyroid nodules TSH normal Follow-up ultrasound thyroid as an outpatient #Ovarian cysts Pelvic ultrasound confirmed right ovarian cyst Follow-up with [facility] [employer] #Severe protein calorie malnutrition #Hypertension Patient was noted to have elevated blood pressure Patient has not seen a doctor in decades Started amlodipine New PCP arranged Deemed stable for discharge today Total Time Total Time Spent Total Time Spent (In Minutes): 35 Discharge Plan Discharge Items Patient Disposition: Home - Self-Care Reason For Visit: ACUTE CHOLECYSTITIS Discharge Diagnosis: Acute cholecystitis status post laparoscopic cholecystectomy Benign essential hypertension Right ovarian cyst Thyroid nodule Condition on Discharge: Fair Activity: Per Instructions section Lifting: No more than 10 pounds Bathing Comment: may shower; no soaking in tubs/pools x 2 weeks Exercise/Sports: Wait until after follow-up appointment Driving/Machine Use: no driving while taking narcotics for pain Non-emergency contact: Primary Care Provider and Surgeon Call non-emergency contact if: your pain is not controlled, you have a fever, your temperature is above 101.5, your wound has increased redness, your wound has increased drainage and your wound pain has increased Follow-up/Referrals: Karissa Rocha MD [Outside Practitioners] - (Date & Time 02/26/2025 2:00 PM Provider: Karissa Denney MD Family [facility] ) Sophia Arita DO [Physician] - 03/04/25 11:30 am () Lalita Vila MD [Physician] - 02/25/25 2:30 pm Diet: Heart Healthy Addtl Attending Provider Instructions: You have skin glue over your incisions called dermabond. you may shower with this on. It will tend to dissolve and fall off within a couple weeks. Do not pick at the skin glue Pending Studies at Discharge: Yes Studies:: surgical pathology Stand-Alone Forms: My [facility] [employer], Smoking Cessation Medications and DC Order Prescriptions: New oxycodone 5 mg tablet 5 - 10 mg PO .[id number] PRN (Reason: pain, for initial therapy, max 6 tabs per day) Qty: 12 0RF cephalexin 500 mg Capsule 500 mg PO BID 4 Days Qty: 8 0RF metronidazole 500 mg Tablet 500 mg PO BID 4 Days Qty: 8 0RF amlodipine [Norvasc] 5 mg Tablet 10 mg PO QAM 30 Days Qty: 60 0RF Discharge Orders: Discharge Order (Routine); Ordered 02/20/25 Ordered By: Kalyani Fitch Admission Data Admit Date/Time: 02/17/25 03:33 Attending Provider: Kalyani Fitch Admit Provider: Michele Rajan Primary Care Provider: PCP,NO Other Providers: Michele Rajan; Bernardo Cortes Other Interventions: Discharge Summary Assessment (RN) Last Done: 02/20/25 11:29
[2025-02-20 10:37] VITALS: PULSE 91; RESP 16; TEMP 98.1; O2SAT 90
[2025-02-20 11:33] VITALS: BP 164/69
== END 2025-02-20 11:33 | disposition home or self-care (01) | DRG 853 ==
LOC: ED 23:38 → SUATTDRO 02-17 03:33 → EDINP 02-17 03:33 → 2S 02-17 06:12